=== PATIENT | male | born 1995 | race Caucasian/White ===

== ENCOUNTER → 2023-09-15 | Outpatient (CLI) | payer BC, SELFPAY | END | disposition home or self-care (01) | PROVIDERS: Referring Provider Nurse Practitioner Family; Visit Provider Nurse Practitioner Family | DX: G47.10 Hypersomnia, unspecified (principal) | CPT/HCPCS: 95806 ==

== ENCOUNTER → 2023-10-27 | Outpatient (CLI) | payer BC, SELFPAY | END | disposition home or self-care (01) | PROVIDERS: Visit Provider Nurse Practitioner Family | DX: G47.33 Obstructive sleep apnea (adult) (pediatric) (principal) | CPT/HCPCS: 95811 ==

== ENCOUNTER → 2023-11-20 | Outpatient (CLI) | payer BC, SELFPAY ==
--- OUTSIDE RECORDS SUMMARY | 2023-11-20 14:39 | XMS RPT_ITS | CCD ---
Author Name Unknown Address [address] [place] [address] Organization [facility] Care Team Providers Care Revenue Cycle Administrator Name Role Phone Wood, Melissa L Unavailable Unavailable Goodwin, Christopher Unavailable Unavailable Wood, Melissa L Unavailable Unavailable Wood, Melissa L Unavailable Unavailable Goodwin, Christopher Unavailable Unavailable Wood, Melissa L Unavailable Unavailable Wood, Melissa L Unavailable Unavailable Goodwin, Christopher Unavailable Unavailable Wood, Melissa L Unavailable Unavailable Wood, Melissa L Unavailable Unavailable Goodwin, Christopher Unavailable Unavailable Wood, Melissa L Unavailable Unavailable Goodwin, Christopher Unavailable Unavailable Wood, Melissa L Unavailable Unavailable Wood, Melissa L Unavailable Unavailable Goodwin, Christopher Unavailable Unavailable Goodwin, Christopher Unavailable Unavailable Wood, Melissa L Unavailable Unavailable Wood, Melissa L Unavailable Unavailable Allergies Allergy Classification Reported Allergen(s) Allergy Type Date of Onset Reaction(s) Facility (1 source) Amphetamine / Dextroamphetamin e; Translations: [Adderall] Drug Allergy [facility] Repository Results Test Name Value Interpretation Reference Range Facil ity Encounters Encounter Date Encounter Type Care Provider Facility Start: 10-18-2018 Patient encounter procedure Eric Goodwin Facility:[facility] Start: 09-21-2018 End: 09-22-2018 Patient encounter procedure Melissa Stevenson Facility:[facility] Start: 08-24-2018 End: 08-25-2018 Patient encounter procedure Melissa Stevenson Facility:[facility] Start: 08-20-2018 End: 08-21-2018 Patient encounter procedure Melissa Stevenson Facility:[facility] Start: 08-17-2018 End: 08-18-2018 Patient encounter procedure Melissa Stevenson Facility:[facility] Payers Date Payer Category Payer Unknown 1975 Unknown [id number] 2.16.84 [id number] 1975 Unknown [id number] 2.16.84 [id number] 1974 Unknown [id number] 2.16.84 [id number] 1974 Unknown [id number] 2.16.84 [id number] 1974 Unknown [id number] 2.16.84 [id number] 1974 Unknown [id number] 2.16.84 [id number] 1974 Unknown [id number] 2.16.84 [id number] Summary Purpose Family History No Family History Records FoundNo Family History Records Found Advance Directives No Advanced Directives Records FoundNo Advanced Directives Records Found Additional Source Comments (unrecognized sect ion and content) No Status Records FoundNo Status Records Found INFORMATION SOURCE (unrecogn ized section and content) DATE CREATED AUTHOR AUTHOR'S NURY ATОЛЬГА 01/21/2020 [facility] FOR RECORDS PERTAINING TO PATIENTS WHO ARE OR HAVE BEEN ENROLLED IN A CHEMICAL DEPENDENCY/SUBSTANCEABUSE PROGRAM, SOME INFORMATION MAY BE OMITTED. This clinical summary was aggregated from multiple sources. Caution should be exercised in using it in the provision of clinical care. This summary normalizes information from multiple sources, and as a consequence, information in this document may materially change the coding, format and clinical context of patient data. In addition, data may be omitted in some cases. CLINICAL DECISIONS SHOULD BE BASED ON THE PRIMARY CLINICAL RECORDS. [facility] [employer] provides no warranty or guarantee of the accuracy or completeness of information in this document.
== END | disposition home or self-care (01) ==
LOC: SL 14:13
PROVIDERS: Visit Provider Nurse Practitioner Family
DX: Z00.00 Encounter for general adult medical examination without abnormal findings (principal)

== ENCOUNTER → 2024-09-30 | Outpatient (CLI) | payer BC, SELFPAY ==
[2024-09-30 13:08] LABS: Color, Urine Yellow (Yellow); Glucose, Dipstick Normal (Normal); Ketone-Dipstick 5 mg/dl (Negative); Leukocyte Esterase-Dipstick Negative /ul (Negative); Nitrite-Dipstick Negative (Negative); Occult Blood-Urine 25 /ul (Negative); Protein-Dipstick 30 mg/dl (Negative); Urine Clarity Cloudy (Clear); Urine Urobilinogen 1 mg/dl (Normal)
[2024-09-30 13:12] LABS: Urine Bilirubin Dipstick 1 mg/dL (Negative)
[2024-09-30 13:17] LABS: Absolute Lymphocyte Count 2.38 X10^3/uL (0.83-4.51); Absolute Neutrophil Count 4.1 X10^3/uL (2.0-7.7); Basophil# 0.03 X10^3/uL; Basophil% 0.4 % (0-1); Eosinophil# 0.13 X10^3/uL; Eosinophils% 1.8 % (0-5); Hematocrit 45.7 % (40-54); Hemoglobin 15.6 g/dL (13.0-16.5); Lymphocyte # 2.38 X10^3/ul (0.83-4.51); Lymphocyte % 33.1 % (19-41); Mean Corp Hgb Conc 34.1 g/dL (32-36); Mean Corpuscular Hgb 30.5 pg (27.0-32.0); Mean Corpuscular Volume 89.3 fL (80-94); Mean Platelet Vol. 9.4 fl (6.2-12.0); Monocyte# 0.58 X10^3/uL; Monocyte% 8.1 % (0-10); NRBC Flagged by Analyzer 0 % (0-5); Neutrophil # 4.06 X10^3/uL (2.7-7.7); Neutrophil % 56.5 % (47-70); Platelet Count 266 K/mm3 (150-450); RBC Distribution Width CV 13.6 % (11.6-14.6); RBC Distribution Width SD 44.6 fl (35.1-43.9); Red Blood Count 5.12 M/mm3 (4.6-6.2); White Blood Count 7.2 K/mm3 (4.4-11.0)
[2024-09-30 13:26] LABS: Vitamin B12 461 pg/mL (211-911); Vitamin D,25 Hydroxy 9.1 ng/mL
[2024-09-30 13:35] LABS: AST(SGOT) 26 U/L (15-37); Alanine Aminotransfer ALT/SGPT 57 U/L (16-61); Albumin, Serum 3.8 g/dL (3.2-5.0); Alkaline Phosphatase 88 U/L (45-117); Anion Gap 6 (5-15); BUN 9 mg/dL (7-18); Calcium,Total 9.1 mg/dL (8.5-10.1); Chloride 108 mmol/L (98-107); Cholesterol 166 mg/dL (200); Creatinine, Serum 0.69 mg/dL (0.70-1.30); EST Glomerular Filtration Rate 142 mL/min (>60); Est Glom Filt Rate - Afr Amer 171 mL/min (>60); Globulin 3.9 g/dL (2.2-4.2); Glucose 87 mg/dL (74-106); High Density Lipoprotein 48 mg/dL; Protein, Total 7.7 g/dL (6.4-8.2); Sodium Level 140 mmol/L (136-145); Triglycerides 87 mg/dL; Very Low Density Lipoprotein 17 mg/dL (5-40)
== END | disposition home or self-care (01) ==
LOC: VSLAB 08:46
PROVIDERS: PCP Nurse Practitioner Family; Visit Provider Nurse Practitioner Family
DX: G47.33 Obstructive sleep apnea (adult) (pediatric) (principal); Z13.220 Encounter for screening for lipoid disorders; Z13.1 Encounter for screening for diabetes mellitus; E55.9 Vitamin D deficiency, unspecified
CPT/HCPCS: 36415; 80053; 80061; 81002; 82306; 82607; 83036; 84443; 85025

== ENCOUNTER 2024-10-03 08:40 | Emergency (ER) | payer BC, SELFPAY ==
[2024-10-03 08:41] VITALS: BP 110/96; PULSE 89; RESP 16; TEMP 37; O2SAT 100; BMI 48.9
--- NOTE | 2024-10-03 09:50 | EKG12_ITS ---
Test Reason : ABD PAIN Blood Pressure : */* mmHG Vent. Rate : 71 BPM Atrial Rate : 71 BPM P-R Int : 188 ms QRS Dur : 134 ms QT Int : 416 ms P-R-T Axes : 64 83 64 degrees QTcB Int : 452 ms Normal sinus rhythm with sinus arrhythmia Non-specific intra-ventricular conduction block Abnormal ECG Confirmed by Turner Salmeron ([id number]), editor greeting card GABE GONZALEZ ([id number]) on 10/05/2024 10:28:22 AM Referred By: Confirmed By: Turner Salmeron
--- NOTE | 2024-10-03 09:50 | CT_ITS ---
EXAM: CT ABDOMEN AND PELVIS WITHOUT INTRAVENOUS CONTRAST CLINICAL INDICATION: Pain TECHNIQUE: Helically acquired images were obtained of the abdomen and pelvis without intravenous contrast. This CT exam was performed using one or more of the following dose reduction techniques: automated exposure control, adjustment of the mA and/or kV according to patient size, and/or use of iterative reconstruction technique. COMPARISON: No relevant prior studies available. FINDINGS: LOWER THORAX: Normal. Lung bases are clear. No cardiomegaly. No pericardial effusion. ABDOMEN: LIVER: Normal. Homogeneous. GALLBLADDER AND BILE DUCTS: Normal. No calcified gallstones. No gallbladder distention or wall edema. No intra- or extrahepatic biliary ductal dilation. PANCREAS: Normal. No focal cystic mass. SPLEEN: Normal. Normal size without focal cystic or solid mass. ADRENALS: Normal. No nodules. KIDNEYS AND URETERS: 3 mm right ureteral stone identified at the L4 level associated with mild distention of the right renal collecting system. Several 2 mm right renal stones. Left kidney and ureter are normal. STOMACH AND BOWEL: Normal. No bowel distention. No focal inflammatory change. PELVIS: APPENDIX: 3 mm appendicolith identified within an otherwise normal appendix. BLADDER: Normal. REPRODUCTIVE: Unremarkable as visualized. No mass. ABDOMEN and PELVIS: INTRAPERITONEAL SPACE: Normal. No ascites or other fluid collection. No free air. BONES/JOINTS: See above. SOFT TISSUES: Normal. No discrete abdominal or pelvic wall hernia. VASCULATURE: Normal. Abdominal aorta is non-dilated. LYMPH NODES: Normal. No enlarged lymph nodes. CT/Abdomen/Pelvis without Cont IMPRESSION: 1. 3 mm right ureteral stone associated with mild distention of the right renal collecting system. 2. Right nephrolithiasis. Electronically Signed: Flavio Kothari MD at 10:33 EST ,
[2024-10-03 09:59] LABS: Absolute Lymphocyte Count 1.46 X10^3/uL (0.83-4.51); Absolute Neutrophil Count 8.5 X10^3/uL (2.0-7.7); Basophil# 0.02 X10^3/uL; Basophil% 0.2 % (0-1); Eosinophil# 0.05 X10^3/uL; Eosinophils% 0.5 % (0-5); Hematocrit 44.7 % (40-54); Hemoglobin 15.2 g/dL (13.0-16.5); Lymphocyte # 1.46 X10^3/ul (0.83-4.51); Lymphocyte % 13.8 % (19-41); Mean Corpuscular Hgb 30.4 pg (27.0-32.0); Mean Corpuscular Volume 89.4 fL (80-94); Mean Platelet Vol. 9.6 fl (6.2-12.0); Monocyte% 4.7 % (0-10); NRBC Flagged by Analyzer 0 % (0-5); Neutrophil # 8.51 X10^3/uL (2.7-7.7); Neutrophil % 80.4 % (47-70); Platelet Count 268 K/mm3 (150-450); RBC Distribution Width CV 13.5 % (11.6-14.6); RBC Distribution Width SD 43.8 fl (35.1-43.9); White Blood Count 10.6 K/mm3 (4.4-11.0)
[2024-10-03] MEDS: 0.9% Normal Saline (1000mL) 1,000 ML 999 ML IV (10:01)
[2024-10-03] MEDS: Ondansetron 4 MG/2 ML Vial IV (10:01)
[2024-10-03] MEDS: morphine 10 MG/ML Syringe IV (10:02)
--- NOTE | 2024-10-03 10:02 | EX.ED.DYSGE1 ---
HPI History of Present Illness Chief Complaint: Abd Pain Informant: patient Narrative Narrative: Patient is a 29-year-old male presenting for right upper quadrant abdominal pain. He states the pain is sharp and under his ribs. It radiates down into his right groin. He notes he had some mild pain yesterday but it went away after about an hour. This morning the pain woke him up at 430. He did take ibuprofen prior to arrival with no significant relief of this pain. He has associated nausea and has vomited a couple times. He does note that he started Wegovy 3 days ago for weight loss. States the pain is constant but comes and waves of worsening pain. Denies any fever or chills. Denies any chest pain or difficulty breathing. Notes at 1 point the pain did radiate up into his ribs and then down and into his back and spine. Denies any history of kidney stones or known gallbladder disease. No other complaints or concerns at this time. Denies any recent alcohol use. [facility] Medical History Sleep apnea CPAP (continuous positive airway pressure) dependence Home Medications ?Medication ?Instructions ?Recorded ?Last Taken ?Type hydrocodone-acetaminophen 5-325mg 1 tab PO Q6H PRN PRN Pain 3 days 10/03/24 Unknown Rx 5mg-325mg #12 TABLETS ibuprofen 600 mg tablet 600 mg PO Q6H PRN pain #20 TABLETS 10/03/24 Unknown Rx ondansetron 4 mg disintegrating 4 mg PO Q8H PRN PRN Nausea #10 tabs 10/03/24 Unknown Rx tablet sulfamethoxazole 800 1 tab PO BID #14 TABLETS 10/03/24 Unknown Rx mg-trimethoprim 160 mg tablet tamsulosin 0.4 mg capsule 0.4 mg PO DAILY #7 CAPSULES 10/03/24 Unknown Rx Allergy/AdvReac Type Severity Reaction Status Date / Time amphetamine (From Adderall) AdvReac Hives Verified 10/03/24 09:33 dextroamphetamine (From AdvReac Hives Verified 10/03/24 09:33 Adderall) Social History Smoking Status: Never smoker ROS ROS ED Constitutional Constitutional ED: Reports sweats; Denies chills or fever(s) Cardiovascular Cardiovascular: Denies chest pain Respiratory/Chest Respiratory/Chest: Denies cough or dyspnea Gastrointestinal Gastrointestinal: Reports abdominal pain, nausea and vomiting; Denies constipation or diarrhea Genitourinary Genitourinary ED: Reports other Details: Pain rating to the right testicle but denies pain with palpation of the right testicle ; Denies dysuria or hematuria Musculoskeletal Musculoskeletal: Reports back pain; Denies arthralgias or myalgias Integumentary Denies rash Neurologic Neurologic: Denies headache(s), paresthesias or weakness EXAM Physical Exam Const Vital Signs: 10/03/24 08:41 10/03/24 10:48 10/03/24 12:20 Temperature 98.6 F 98.1 F Temperature Source Oral Oral Pulse Rate 89 60 78 Respiratory Rate 16 18 18 Blood Pressure 110/96 H 132/77 H 138/80 H Blood Pressure Mean 100 95 99 Pulse Ox 100 98 99 Oxygen Delivery Method Room Air Room Air Room Air 10/03/24 13:00 Temperature Temperature Source Pulse Rate 81 Respiratory Rate 16 Blood Pressure 128/74 H Blood Pressure Mean 92 Pulse Ox 98 Oxygen Delivery Method Room Air Positive well nourished and well developed Constitutional Narrative: Diaphoretic General Appearance ED: well developed and NAD HEENT Reports moist mucous membranes Neck supple Chest Wall inspection of chest normal and palpation of chest normal Resp normal respiratory effort and clear to auscultation bilaterally Cardio regular rate and regular rhythm GI GI Narrative: Normal bowel sounds, soft and nondistended. Tenderness palpation of the right upper quadrant but negative Vigil sign. No tenderness palpation of the right lower quadrant. Palpation: soft Back/Spine General Back: CVA tenderness right Extremity normal to inspection General Extremety ED: Negative for edema General Extremity: Negative for edema Neuro oriented x3 Sensorium / Orientation: alert Motor Exam: Negative for general weakness Psych mental status grossly normal Skin no rashes or lesions noted and no wounds MDM MDM MDM Narrative Medical decision making narrative: Patient evaluated for worsening right flank pain. Differential includes renal colic, hydronephrosis, biliary colic, pancreatitis or referred cardiac symptoms. Patient is she given morphine and Zofran as well as IV fluids. Does continue have pain and is redosed with Toradol and Dilaudid. On repeat evaluation he is much more comfortable. Workup shows largely normal labs. CT abdomen pelvis shows a 3 mm right ureteral stone associate with mild distention of the right renal collecting system. This is consistent with his presentation today. Patient will be discharged home for expectant management as the stone should pass on its own and he does not have an ALCIRA, intractable/uncontrolled pain. Urinalysis is concerning with infection with 1+ bacteria and positive nitrates with greater than 100 white blood cells as well as greater than 100 red blood cells. There is also some cast and I suspect there is component of dehydration. Will send out for culture and start on Bactrim as well. Will give urology follow-up. Patient is quite well-appearing with no leukocytosis and I still think a good candidate for outpatient treatment. Lab Data Attestation: I reviewed the patient's lab results. Labs: Laboratory Results - last 24 hr 10/03/24 10/03/24 09:00 13:35 WBC 10.6 RBC 5.00 Hgb 15.2 Hct 44.7 MCV 89.4 MCH 30.4 MCHC 34.0 RDW Std Deviation 43.8 RDW Coeff of Vilma 13.5 Plt Count 268 MPV 9.6 Immature Gran % (Auto) 0.400 Neut % (Auto) 80.4 H Lymph % (Auto) 13.8 L [place] % (Auto) 4.7 Eos % (Auto) 0.5 Baso % (Auto) 0.2 Absolute Neuts (auto) 8.5 H Absolute Lymphs (auto) 1.46 Nucleated RBC % 0 Sodium 137 Potassium 3.6 Chloride 102 Carbon Dioxide 26.0 Anion Gap 9 BUN 10 Creatinine 0.84 Estim Creat Clear Calc 203.61 Est GFR (MDRD) Af Amer 137 Est GFR (MDRD) Non-Af 113 BUN/Creatinine Ratio 11.9 Glucose 125 H Calcium 9.4 Total Bilirubin 0.80 AST 23 ALT 59 Alkaline Phosphatase 87 Total Protein 7.8 Albumin 4.0 Globulin 3.8 Albumin/Globulin Ratio 1.1 Lipase 22 Urine Color Roxanne Urine Clarity Cloudy Urine pH 7.0 Ur Specific Sullivan 1.010 Urine Protein 100 H Urine Glucose (UA) Normal Urine Ketones 15 H Urine Occult Blood 250 H Urine Nitrite Positive H Urine Bilirubin Negative Urine Urobilinogen 1 H Ur Leukocyte Esterase 100 H Urine RBC > 100 SEEN Urine WBC >100 SEEN Ur Squamous Epith Cells 0-5 SEEN Calcium Oxalate Crystal 2+ Urine Bacteria 1+ Hyaline Casts 0-5 SEEN Fine Granular Casts 0-5 SEEN Urine Mucus 3+ Radiography Diagnostic Testing: Clinical Impression(s) from Imaging Studies Abdomen/Pelvis CT 10/03/24 09:50 IMPRESSION: 1. 3 mm right ureteral stone associated with mild distention of the right renal collecting system. 2. Right nephrolithiasis. Electronically Signed: Flavio Kothari MD at 10:33 EST Reading Location ID and State: [facility] Tel , Service support , Rhythm Strip Rhythm Strip: Sinus Rhythm Rate: 71 Ectopy: None EKG Initial EKG: Attestation: I personally reviewed and interpreted this EKG as follows: Interpretation: Sinus Rhythm Comments: Normal sinus rhythm at a rate of 71 bpm with sinus arrhythmia Normal axis Nonspecific intraventricular block with QRS of [address] segments Discharge Plan Triage Chief Complaint: Abd Pain ED Provider: Violet Egan Dx/Rx/DC Orders Clinical Impression: Renal colic on right side, Ureterolithiasis Instructions: ED Kidney Stone with Pain Prescriptions: New hydrocodone-acetaminophen 5-325 mg tablet 1 tab PO Q6H PRN PRN (Reason: Pain) 3 Days Qty: 12 0RF sulfamethoxazole-trimethoprim 800-160 mg tablet 1 tab PO BID Qty: 14 0RF ondansetron 4 mg tablet,disintegrating 4 mg PO Q8H PRN PRN (Reason: Nausea) Qty: 10 0RF ibuprofen 600 mg tablet 600 mg PO Q6H PRN (Reason: pain) Qty: 20 0RF tamsulosin 0.4 mg capsule 0.4 mg PO DAILY Qty: 7 0RF Primary Care Provider: Angel Waterman Referrals: Chuy Bautista MD [Med Staff - Active Staff] - 3-5 Days Angel Waterman, PEDIATRIC SOCIAL WORKER-C [Primary Care Provider] - Activity Restrictions/Additional Instructions: Your urinalysis does show some physis with infection. Addition you have a 3 mm stone on the right. Please drink plenty of fluids. Take pain medication as needed. Please follow-up with urology. If you develop a fever, worsening pain that you cannot get under control or further concerns please return to the emergency room. Print Language: Slovak Disposition Disposition: Home, Self Care
[2024-10-03 10:15] LABS: ALB/GLOB Ratio 1.1 RATIO (0.9-2.4); AST(SGOT) 23 U/L (15-37); Alanine Aminotransfer ALT/SGPT 59 U/L (16-61); Alkaline Phosphatase 87 U/L (45-117); Anion Gap 9 (5-15); BUN 10 mg/dL (7-18); BUN/Creat Ratio 11.9 RATIO (10-20); Calcium,Total 9.4 mg/dL (8.5-10.1); Chloride 102 mmol/L (98-107); Creatinine, Serum 0.84 mg/dL (0.70-1.30); EST Glomerular Filtration Rate 113 mL/min (>60); Est Glom Filt Rate - Afr Amer 137 mL/min (>60); Estimated Creatinine Clearance 203.61 ml/min; Globulin 3.8 g/dL (2.2-4.2); Glucose 125 mg/dL (74-106); Lipase 22 U/L (13-75); Potassium 3.6 mmol/L (3.5-5.1); Protein, Total 7.8 g/dL (6.4-8.2); Sodium Level 137 mmol/L (136-145)
[2024-10-03 10:48] VITALS: BP 132/77; PULSE 60; RESP 18; TEMP 36.7; O2SAT 98
[2024-10-03] MEDS: Ketorolac 15 MG/ML Vial IV (11:21)
[2024-10-03] MEDS: HYDROmorphone 1 MG/ML Syringe IV (11:40)
[2024-10-03 12:20] VITALS: BP 138/80; PULSE 78; RESP 18; O2SAT 99
[2024-10-03 13:00] VITALS: BP 128/74; PULSE 81; RESP 16; O2SAT 98
[2024-10-03 13:59] LABS: Color, Urine Amber (Yellow); Glucose, Dipstick Normal (Normal); Ketone-Dipstick 15 mg/dl (Negative); Leukocyte Esterase-Dipstick 100 /ul (Negative); Nitrite-Dipstick Positive (Negative); Occult Blood-Urine 250 /ul (Negative); Protein-Dipstick 100 mg/dl (Negative); Urine Bilirubin Dipstick Negative (Negative); Urine Clarity Cloudy (Clear); Urine Urobilinogen 1 mg/dl (Normal)
[2024-10-03 15:00] VITALS: BP 129/78; PULSE 79; RESP 18; O2SAT 99
[2024-10-03 15:10] LABS: Bacteria 1+ /hpf (None Seen); Calcium Oxalate Crystals Ur 2+ /hpf (<or=2+); Fine Granular Cast- Urine 0-5 SEEN /lpf (0-5); Hyaline Cast 0-5 SEEN /lpf (0-5); Mucous, Urine 3+ /hpf (<or=2+); Red Blood Cells-Urine > 100 SEEN /hpf (0-5); Squamous Epithelial Cells - UA 0-5 SEEN /hpf (0-5); White Blood Cells >100 SEEN /hpf (0-5)
[2024-10-03] MEDS: Smz/Tmp Ds Tablet 1 TABLET PO (15:20)
[2024-10-03 15:21] VITALS: BP 128/74; PULSE 88; RESP 16; TEMP 36.4; O2SAT 99
== END 2024-10-03 15:31 | disposition home or self-care (01) ==
PROVIDERS: Emergency Provider Emergency Medicine; PCP Nurse Practitioner Family; Visit Provider Emergency Medicine
DX: N20.2 Calculus of kidney with calculus of ureter (principal)
CPT/HCPCS: 74176; 80053; 81001; 83690; 85025; 87086; 87088; 93005; 96361; 96374; 96375; 99283; A4216; J2405